=== PATIENT | female | born 1965 | race American Indian/Alaskan Native ===

== ENCOUNTER 2019-12-18 14:54 | Outpatient (CLI) | payer BC ==
--- NOTE | 2019-12-18 16:01 | Mammography Report ---
DIGITAL DIAGNOSTIC MAMMOGRAM WITH CAD, 12/18/2019 INDICATION: Grouped calcifications in the right breast on screening mammography. ABNORMAL MAMMO TECHNIQUE: Digital right mammographic imaging was performed. Magnification views were obtained. This examination was interpreted with the benefit of Computer-aided Detection analysis. COMPARISON: Bilateral mammography 11/06/19. FINDINGS: Breast Density: The breasts are heterogeneously dense, which may obscure small masses. Grouped calcifications in the right inferior breast near the 6:00 position posteriorly are coarse and heterogeneous. Biopsy is recommended. IMPRESSION: Grouped calcifications in the right inferior breast are suspicious and biopsy is recommen ded. Follow up recommendation: Surgical consult BI-RADS Category 4: Suspicious for Malignancy. BI-RADS Category 4B-intermediate suspicion for malign kathy. A "normal" or negative report should not discourage follow up or biopsy of a clinically significant f inding. A written summary of these findings will be mailed to the patient. The patient will be entered into a mammography reporting system which will generate a reminder letter for the patient's next appointmen t at the appropriate interval. According to the [employer], yearly mammograms are recommended starting at age 40 and continuing as long as a woman is in good health. Breast MRI is recommended for women with an quincy roximately 20-25% or greater lifetime risk of breast cancer, including women with a strong family his tory of breast or ovarian cancer and women who have been treated for Hodgkin's disease. Signer Name: Kristopher Sherwood MD Signed: 12/18/2019 3:56 PM Workstation Name: [id number]
== END 2019-12-18 14:55 | disposition home or self-care (01) ==
LOC: SPVWC 14:54
PROVIDERS: ATTEND Pediatrics
DX: R92.1 Mammographic calcification found on diagnostic imaging of breast (principal)

== ENCOUNTER 2020-04-23 08:50 | Day surgery (SDC) | payer BC ==
[~2020-04-23 08:50] MED LIST: ACETAMINOPHEN 500 MG TAB PO SCH; GABAPENTIN 300 MG CAP PO NR; LACTATED RINGERS 1,000 ML IV SCH; MIDAZOLAM 2 MG/2 ML INJ IV NR; ceFAZolin/Water 2 GM/20 ML 2 GM/20 ML SYRINGE IV NR
[2020-04-23] MEDS ORDERED: LIDOCAINE (1%) 10 MG/1 ML VIAL 20 ML MDV ONE ×2 (10:22→12:22)
[2020-04-23] MEDS ORDERED: HYDROmorphone 1 MG/1 ML INJ IV PRN (11:15)
--- NOTE | 2020-04-23 11:15 | Anesthesia Day of Surgery ---
Anesthesia Day of Surgery - Day of Surgery Patient Examined: Yes Patient H&P Reviewed: Yes Patient is NPO: Yes
--- NOTE | 2020-04-23 11:15 | Anesthesia Consultation ---
Anesthesia Consult and Med Hx Date of service: 04/23/20 - Airway Anesthetic Teeth Evaluation: Good ROM Head & Neck: Adequate Mental/Hyoid Distance: Adequate Mallampati Class: Class III Intubation Access Assessment: Possibly Difficult - Pulmonary Exam CTA: Yes - Cardiac Exam Cardiac Exam: RRR - Pre-Operative Health Status ASA Pre-Surgery Classification: ASA2 Proposed Anesthetic Plan: General - Pulmonary Hx Smoking: No Hx Respiratory Symptoms: No - Cardiovascular System Hx Hypertension: No Hx Heart Attack/AMI: No - Central Nervous System CVA: No - Endocrine Hx Renal Disease: No Hx Liver Disease: No Hx Non-Insulin Dependent Diabetes: Yes (pre-DM; no meds) - Other Systems Hx Obesity: No - Additional Comments Anesthesia Medical History Comments: No hx anesthetic complications.
[2020-04-23] MEDS ORDERED: SODIUM CHLORIDE P/F VIAL 10 ML 10 ML ONE (12:22)
[2020-04-23] MEDS ORDERED: BUPIVACAINE/PF (0.25%) 2.5 MG/ML 30 ML VIAL INFILTRATI ONE ×2 (12:22→14:19)
[2020-04-23] MEDS ORDERED: dexAMETHasone 20 MG/5 ML VIAL ONE (13:26)
[2020-04-23] MEDS ORDERED: HYDROmorphone 1 MG/1 ML INJ ONE (13:26)
[2020-04-23] MEDS ORDERED: ONDANSETRON 4 MG/2 ML INJ ONE (13:26)
[2020-04-23] MEDS ORDERED: propofoL 200 MG/20 ML VIAL IV ONE (13:26)
[2020-04-23] MEDS ORDERED: LIDOCAINE MPF (2%) 20 MG/1 ML VIAL 5 ML ONE (13:26)
[2020-04-23] MEDS ORDERED: WATER FOR IRRIG STERILE 1,500 ML BOTTLE IR ONE (14:18)
[2020-04-23] MEDS ORDERED: LIDOCAINE (1%) 10 MG/1 ML VIAL 20 ML MDV INFILTRATI ONE (14:19)
--- NOTE | 2020-04-23 14:31 | Mammography Report ---
RIGHT BREAST NEEDLE LOCALIZATION USING X-RAY GUIDANCE The procedure was explained to the patient and informed consent obtained. PROCEDURE: Using 5 mL of 1% buffered lidocaine, a 25 gauge needle and x-ray guidance, the focal calc ifications in the extreme posterior central right breast near the chest wall were localized with pool dard needle/wire technique. There were no immediate complications. INTERPRETATION: 2 images made during the procedure demonstrate the needle to be properly positioned. IMPRESSION: Successful right breast lesion localization as described above. Thank you for allowing us to participate in the care of your patient. Signer Name: Mac Reynolds Jr, MD Signed: 04/23/2020 2:27 PM Workstation Name: [id number]
[2020-04-23] MEDS ORDERED: PHENYLEPHRINE/NS 1,000 MCG/10 ML SYRINGE (OR USE) IV ONE (14:33)
[2020-04-23] MEDS ORDERED: BACITRACIN ZINC OINT 28.4 GM TP ONE (15:22)
[2020-04-23] MEDS ORDERED: MUPIROCIN 2% OINT 22 GM TP ONE (15:23)
[2020-04-23] MEDS ORDERED: LACTATED RINGERS 1,000 ML ONE (15:23)
--- NOTE | 2020-04-23 15:37 | Operative Report ---
Operative Report Operative Report: Operative Report: April 23, 2020 Preoperative diagnosis: Right breast suspicious microcalcifications of the posterior lower outer quadrant Postoperative diagnosis: Same Procedure: Right breast needle localization excisional biopsy of the lower outer quadrant of suspicious microcalcifications Surgeon: Gracia Mejia MD Network Support Specialist: Yon Duong MD Anesthesia: General Findings: Right wire and microcalcifications present within radiograph specimen Complications: None EBL: Minimal Disposition: PACU in good condition Indications for operative procedure: This is a 55 year old lady with recent abnormal right mammogram of suspicious miocrocalcifications of the lower outer quadrant. Stereotactic breast biopsy attempted by radiologist and unable to be performed given posterior location. Recommendations are to proceed with right needle localization excisional biopsy of suspicious microcalcifications to rule out malignancy. She wished to proceed with the above procedure and understood additional procedures may be indicated pending final pathology. Procedure in detail: The patient was taken to radiology for wire placement for localization of microcalcifications of the lower outer quadrant. Patient was then taken to the operating room. Gen. anesthesia was administered. Right breast and axilla were prepped and draped in the normal sterile operative fashion. The wire was identified. Timeout was performed. Attention was then taken towards the right breast. Wire was located central posterior quadrant. A lateral breast incision around 7:00 position was made with a 15 blade knife and dissection taken down to subcutaneous tissues. First began raising of the s uperior flap with removal of the wire from the skin with dissection taken past the area of concern and then taken down posteriorly, followed by raising of the inferior flap, medial flap and lateral flap with all flaps taken past the area of concern and then posteriorly past the wire. The breast area of concern was appropriately removed posteriorly with the aid of the Bovie cautery. The wire was not encountered. Specimen was marked and then sent to pathology and radiology; radiograph specimen with wire and at least some of the microcalifications present; area of concern was noted to be appropriately removed at the correct location of calcifications present at the wire with appropriate adjacent breast tissue present. Area confirmed with radiologist as well. Breast cavity was irrigated and hemostasis was obtained. The breast cavity was anesthesized with 1% lidocaine mixed with quarter percent marcaine. The posterior deep breast tissues were approximated and closed using interrupted 3-0 Vicryl. The subcutaneous tissues were then approximated and closed using interrupted 3-0 Vicryl followed by closing of the skin with a running 4-0 Monocryl and skin affix. The patient tolerated surgery very well and she was awaken from anesthesia without any complication and transported to PACU in good condition.
--- NOTE | 2020-04-23 15:39 | Short Stay Summary ---
Short Stay Documentation Date of service: 04/23/20 - History H&P: obtained from office - Allergies and Medications Current Medications: Allergies No Known Allergies Allergy (Unverified 04/16/20 15:39) Home Medications Medication Instructions Recorded Confirmed Last Taken Type oxyCODONE /ACETAMINOPHEN [Percocet 1 tab PO Q6HR PRN #20 tablet 04/23/20 Unknown Rx 5/325] Active Medications Acetaminophen (Tylenol) 1,000 mg PO PREOP ORTIZ Stop: 04/23/20 23:00 Last Admin: 04/23/20 11:40 Dose: 1,000 mg Documented by: Gabapentin (Gabapentin) 300 mg PO PREOP NR Stop: 04/23/20 23:00 Last Admin: 04/23/20 11:40 Dose: 300 mg Documented by: Hydromorphone HCl (Dilaudid) 0.5 mg IV Q10MIN PRN PRN Reason: Pain , Severe (7-10) Stop: 04/23/20 23:00 Cefazolin Sodium (Ancef/Sterile Water 2 Gm/20 Ml) 2 gm in 20 mls @ 80 mls/hr IV PREOP NR; Protocol Stop: 04/23/20 23:59 Lactated Ringer's (Lactated Ringers) 1,000 mls @ 100 mls/hr IV DIRECT ORTIZ Stop: 04/23/20 23:59 Last Admin: 04/23/20 11:50 Dose: 100 mls/hr Documented by: Midazolam HCl (Versed) 2 mg IV PREOP NR Stop: 04/23/20 23:00 Last Admin: 04/23/20 11:50 Dose: 2 mg Documented by: - Brief post op/procedure progress note Date of procedure: 04/23/20 Pre-op diagnosis: Right central posterior breast microcalcifications Post-op diagnosis: same Procedure: Right needle localization breast excisional biopsy of suspicious microcalcifications Anesthesia: GETA Findings: calcifications and wire present Surgeon: EDSON POSEY Estimated blood loss: minimal Pathology: list - Disposition Condition at discharge: Good Disposition: DC-01 TO HOME OR SELFCARE Short Stay Discharge Plan Activity: other (no heavy lifting) Diet: regular Wound: keep clean and dry (wear breast binder; may shower in 48 hours; no baths, pools or lakes) Follow up with: EDSON POSEY MD [Staff Physician] - 7 Days Prescriptions: oxyCODONE /ACETAMINOPHEN [Percocet 5/325] 1 tab PO Q6HR PRN #20 tablet PRN Reason: Pain
[2020-04-23] MEDS ORDERED: MEPERIDINE 25 MG/1 ML INJ ONE (15:52)
[2020-04-23] MEDS ORDERED: MEPERIDINE 25 MG/1 ML INJ IV PRN (15:56)
--- NOTE | 2020-04-23 16:10 | Mammography Report ---
MAMMOGRAPHY SURGICAL SPECIMEN HISTORY: Excisional biopsy, right breast cancer FINDINGS: 2 images of the surgical specimen are presented containing the localization wire and 2 of t he calcifications seen in the posterior right breast on the localization images. Please correlate wit h the pathology report for margins. IMPRESSION: Successful excisional biopsy as described. Signer Name: Mac Reynolds Jr, MD Signed: 04/23/2020 4:05 PM Workstation Name: [id number]
[2020-04-23 16:33] VITALS: BP 141/69
--- NOTE | 2020-04-23 18:25 | Post Anesthesia Evaluation ---
- Post Anesthesia Evaluation Patient Participated: Yes Airway Patent: Yes Stable Respiratory Function: Yes Nausea/Vomiting: No Temp > 96.8F: Yes Pain Manageable: Yes Adequeate Hydration: Yes Anesthesia Complications: No
== END 2020-04-23 17:15 | disposition home or self-care (01) ==
LOC: OR 08:50
PROVIDERS: ATTEND Surgery
DX: R92.0 Mammographic microcalcification found on diagnostic imaging of breast (principal); R92.2 Inconclusive mammogram; E11.9 Type 2 diabetes mellitus without complications; Z79.899 Other long term (current) drug therapy; Z72.89 Other problems related to lifestyle; Z98.890 Other specified postprocedural states
CPT/HCPCS: 19125; 19281; 76098; 88307; J0690; J1100; J1170; J2175; J2250; J2370; J2405; J2704; J7120

== ENCOUNTER 2020-12-08 08:01 | Outpatient (CLI) | payer BC ==
--- NOTE | 2020-12-08 15:00 | Mammography Report ---
DIGITAL SCREENING MAMMOGRAM WITH TOMOSYNTHESIS WITH CAD, 12/08/2020 CLINICAL INFORMATION / INDICATION: Screening TECHNIQUE: Digital bilateral 2D and 3D mammography with tomosynthesis was obtained in the craniocaud al and mediolateral oblique projections. Computer-Aided Detection (CAD) analysis was used for interp retation of this study. COMPARISON: 11/06/2019 and priors FINDINGS: Breast Density: The breasts are heterogeneously dense, which may obscure small masses. No dominant mass, suspicious calcifications, or architectural distortion in the left breast. In the posterior depth of the right breast on MLO view at the level of the nipple, a 7 mm ovoid new d ensity is seen. On tomographic imaging this projects slightly medially but probably is in the central core of the breast, retroareolar but deep. Benign-appearing calcifications are not significantly evelina nged bilaterally. IMPRESSION: New density on the right Follow up recommendation: Right breast ultrasound and additional mammographic views if needed BI-RADS Category 0: Incomplete. Needs additional imaging evaluation and/or prior mammograms for elva bianchi. A "normal" or negative report should not discourage follow up or biopsy of a clinically significant f inding. A written summary of these findings will be mailed to the patient. The patient will be entered into a mammography reporting system which will generate a reminder letter for the patient's next appointmen t at the appropriate interval. The [employer] recommends yearly mammograms starting at age 40 and continuing as l zak as a woman is in good health. Breast MRI is recommended for women with an approximate 20-25% or greater lifetime risk of breast cancer, including women with a strong family history of breast or ova se cancer or who have been treated for Hodgkin's disease. Signer Name: Charlie Nguyễn MD Signed: 12/08/2020 2:56 PM Workstation Name: [id number]
== END 2020-12-08 08:02 | disposition home or self-care (01) ==
LOC: SPVWC 08:01
PROVIDERS: ATTEND Surgery
DX: Z12.31 Encounter for screening mammogram for malignant neoplasm of breast (principal); N64.89 Other specified disorders of breast
CPT/HCPCS: 77063; 77067

== ENCOUNTER 2021-05-20 15:26 | Outpatient (CLI) | payer BC ==
--- NOTE | 2021-05-20 17:36 | XRay Report ---
CHEST 2 VIEWS INDICATION / CLINICAL INFORMATION: SCREENING FOR TUBERCULOSIS Z11.1. COMPARISON: None available. FINDINGS: SUPPORT DEVICES: None. HEART / MEDIASTINUM: No significant abnormality. LUNGS / PLEURA: No significant pulmonary or pleural abnormality. No pneumothorax. ADDITIONAL FINDINGS: No significant additional findings. IMPRESSION: 1. No acute findings. Signer Name: Frankie Johnston MD Signed: 05/20/2021 5:31 PM Workstation Name: [id number]
== END 2021-05-20 15:27 | disposition home or self-care (01) ==
LOC: SPVIMAG 15:26
PROVIDERS: ATTEND Pediatrics
DX: Z11.1 Encounter for screening for respiratory tuberculosis (principal)
CPT/HCPCS: 71046

== ENCOUNTER 2021-12-09 08:38 | Outpatient (CLI) | payer BC ==
--- NOTE | 2021-12-09 11:01 | Mammography Report ---
DIGITAL SCREENING MAMMOGRAM WITH CAD, 12/09/2021 CLINICAL INFORMATION / INDICATION: Routine screening mammography TECHNIQUE: Digital 2D mammography was obtained in the craniocaudal and mediolateral oblique projectio ns. This examination was interpreted with the benefit of Computer-Aided Detection analysis. COMPARISON: 12/08/2020 FINDINGS: Breast Density: The breasts are heterogeneously dense, which may obscure small masses. No dominant mass, suspicious calcifications, or architectural distortion in either breast. Benign-appearing calcifications are again seen bilaterally. Density on the right is less obvious. IMPRESSION: No mammographic evidence of malignancy. Follow up recommendation: Routine yearly screening mammogram. BI-RADS Category 2: BENIGN. A "normal" or negative report should not discourage follow up or biopsy of a clinically significant f inding. A written summary of these findings will be mailed to the patient. The patient will be entered into a mammography reporting system which will generate a reminder letter for the patient's next appointmen t at the appropriate interval. The [employer] recommends yearly mammograms starting at age 40 and continuing as l zak as a woman is in good health. Breast MRI is recommended for women with an approximate 20-25% or greater lifetime risk of breast cancer, including women with a strong family history of breast or ova se cancer or who have been treated for Hodgkin's disease. Signer Name: Charlie Nguyễn MD Signed: 12/09/2021 10:56 AM Workstation Name: [id number]
== END 2021-12-09 08:39 | disposition home or self-care (01) ==
LOC: SPVWC 08:38
PROVIDERS: ATTEND Pediatrics
DX: Z12.31 Encounter for screening mammogram for malignant neoplasm of breast (principal); N64.89 Other specified disorders of breast
CPT/HCPCS: 77067